=== PATIENT | female | born 1985 | race Caucasian/White ===

== ENCOUNTER 2018-09-08 09:44 | Emergency (ER) | payer SELFPAY ==
[2018-09-08 09:56] VITALS: O2SAT 100
[2018-09-08] MEDS ORDERED: Tetracaine 0.5% Ophth 2 ML BOTTLE OD ONE (10:40)
[2018-09-08] MEDS ORDERED: Bacitracin 500 Units/gm Oint Foilpak UD TOP ONE (10:41)
[2018-09-08] MEDS ORDERED: Fluorescein 1 mg Ophthalmic Strip OD ONE (10:41)
[2018-09-08] MEDS ORDERED: Tetracaine 0.5% Ophth (OR ONLY) ONE (10:44)
[2018-09-08] MEDS ORDERED: Fluorescein 1 mg Ophthalmic Strip ONE (10:44)
[2018-09-08] MEDS ORDERED: Bacitracin 500 Units/gm Oint Foilpak UD ONE (10:44)
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
[2018-09-08] MEDS ORDERED: Erythromycin 0.5% Ophth Oint 1 APPLIC/3.5 G OD STA (10:56)
[2018-09-08] MEDS ORDERED: Erythromycin 0.5% Ophth Oint 1 APPLIC/3.5 G ONE (11:02)
[2018-09-08 11:14] VITALS: BP 132/74; PULSE 86; RESP 18; TEMP 98.2
== END 2018-09-08 11:40 | disposition home or self-care (01) ==
LOC: C.ER 09:44
DX: T26.01XA Burn of right eyelid and periocular area, initial encounter (principal); T20.16XA Burn of first degree of forehead and cheek, initial encounter; S05.01XA Injury of conjunctiva and corneal abrasion without foreign body, right eye, initial encounter; X10.2XXA Contact with fats and cooking oils, initial encounter